=== PATIENT | male | born 2005 | race Caucasian/White ===

== ENCOUNTER 2025-02-07 23:36 | Emergency (ER) | payer OTHER ==
[~2025-02-07] VITALS: Ht 167.6 cm; Wt 77.3 kg
[2025-02-08] MEDS: IBUPROFEN 800 MG TAB PO ONE (02:45)
[2025-02-08] MEDS: traMADol 50 MG TAB PO ONE (02:47)
[2025-02-08 03:31] VITALS: BP 125/82; TEMP 98.3; O2SAT 100
[2025-02-08] MEDS: traMADol 50 MG TAB (HOME DOSE PACK) PO ONE (03:41)
== END 2025-02-08 03:57 | disposition home or self-care (01) ==
LOC: M ED 23:36
DX: S16.1XXA Strain of muscle, fascia and tendon at neck level, initial encounter (principal); S00.83XA Contusion of other part of head, initial encounter; H53.8 Other visual disturbances; W22.8XXA Striking against or struck by other objects, initial encounter; J34.2 Deviated nasal septum; Y92.89 Other specified places as the place of occurrence of the external cause; Y93.89 Activity, other specified; Y99.0 Civilian activity done for income or pay